=== PATIENT | male | born 1940 | race Caucasian/White ===

== ENCOUNTER 2022-07-14 05:40 | Day surgery (SDC) | payer OTHER ==
[2022-07-12 13:14] LABS: BASOPHILS % (AUTO) 0.3 % (0.0-5.0); EOSINOPHILS % (AUTO) 1.3 % (0.0-8.0); HEMATOCRIT 41.1 % (42-54); LYMPHOCYTES % (AUTO) 17.6 % (21.0-51.0); MEAN CORPUSCULAR HGB CONC 33.1 g/dL (32.0-36.0); MEAN CORPUSCULAR VOLUME 90.7 fL (79-99); MONOCYTES % (AUTO) 7.4 % (3.0-13.0); NEUTROPHILS % (AUTO) 73.1 % (40.0-77.0); PLATELET COUNT (AUTO) 148 K/uL (130-400); RED BLOOD CELL COUNT(AUTO) 4.53 MIL/uL (4.50-6.20); RED CELL DISTRIBUTION WIDTH 13.5 % (11.0-15.5); WHITE BLOOD COUNT (AUTO) 6.8 K/uL (4.8-10.8)
[2022-07-12 13:19] LABS: CREATININE 1.2 mg/dL (0.5-1.5); POTASSIUM 4.1 mmol/L (3.5-5.1)
[2022-07-12 13:28] LABS: INR 1.06 (0.85-1.15); PROTHROMBIN TIME 11.5 SEC (9.6-11.6)
[2022-07-12 13:30] LABS: PARTIAL THROMBOPLASTIN TIME 27.9 SEC (26.3-35.5)
[2022-07-12 13:52] LABS: B-TYPE NATRIURETIC PEPTIDE 140 pg/mL (0-100)
[2022-07-13 10:47] VITALS: BP 165/78
[2022-07-14] VITALS (9 sets, daily range): BP systolic 131–155; BP diastolic 67–81
[~2022-07-14] VITALS: Ht 177.8 cm; Wt 85.3 kg
[~2022-07-14 05:40] MED LIST: AEC81 PO; AMLO-257 PO; CARV25TA PO; CLOP75TA32 PO; EMPA25TA PO; FINA5TAB41 PO; INSU100V12 SQ; METF-446 PO; OXYB5TAB15 PO; PANT40TA54 PO; PRAM1TAB7 PO; SACU1TAB4 PO; SEMA2PEN SQ; SPIR25TA6 PO
[2022-07-14] MEDS ORDERED: HEPARIN 10,000 UNIT/10ML (1,000 UNIT/ML) VIAL ONE (08:41)
[2022-07-14] MEDS ORDERED: FENTANYL CITRATE PF 50 MCG/1 ML 2ML VIAL ONE ×2 (08:41→10:26)
[2022-07-14] MEDS ORDERED: NITROGLYCERIN 50MG VIAL ONE (08:41)
[2022-07-14] MEDS ORDERED: IODIXANOL 320 MG/ML 100 ML VIAL ONE (08:41)
[2022-07-14] MEDS ORDERED: MIDAZOLAM HCL 1 MG/ML 2ML VIAL ONE ×2 (08:41→10:26)
[2022-07-14] MEDS ORDERED: LIDOCAINE HCL 400MG/20ML VIAL ONE (08:41)
[2022-07-14] MEDS ORDERED: NICARDIPINE 25MG INJ IV ONE (09:31)
[2022-07-14] MEDS ORDERED: CLOPIDOGREL 300MG TAB ONE (09:36)
[2022-07-14] MEDS ORDERED: LABETALOL 20MG SYG IV ONE (10:27)
[2022-07-14] MEDS ORDERED: 0.9%NACL 1000ML 1,000 ML IV SCH (11:00)
[2022-07-14] MEDS ORDERED: DEXTROSE 50%-WATER 50 ML DISP.SYRIN IV PRN (11:00)
[2022-07-14] MEDS ORDERED: GLUCAGON 1MG KIT 1 MG ML IM PRN (11:00)
== END 2022-07-14 14:45 | disposition home or self-care (01) ==
LOC: DAH 05:40
PROVIDERS: ATTEND Internal Medicine Cardiovascular Disease
DX: I70.248 Atherosclerosis of native arteries of left leg with ulceration of other part of lower leg (principal); L97.828 Non-pressure chronic ulcer of other part of left lower leg with other specified severity; E11.51 Type 2 diabetes mellitus with diabetic peripheral angiopathy without gangrene; I70.92 Chronic total occlusion of artery of the extremities; I11.0 Hypertensive heart disease with heart failure; I50.22 Chronic systolic (congestive) heart failure; I48.0 Paroxysmal atrial fibrillation; E78.5 Hyperlipidemia, unspecified; K21.9 Gastro-esophageal reflux disease without esophagitis; Z79.82 Long term (current) use of aspirin; Z79.01 Long term (current) use of anticoagulants; Z79.899 Other long term (current) drug therapy; Z98.890 Other specified postprocedural states; Z72.89 Other problems related to lifestyle; Z82.49 Family history of ischemic heart disease and other diseases of the circulatory system; Z90.89 Acquired absence of other organs; Z79.84 Long term (current) use of oral hypoglycemic drugs
CPT/HCPCS: 80048; 83880; 85025; 85610; 85730; 36415 ×2; 71045; 93005; 75716; 85347; 82948 ×2; C9766; C1725; C1894 ×2; C1893; C1769 ×2; C1724; C1760; C2623 ×2; C1887; J3010 ×2; J3490 ×3; J1644 ×2; J2250 ×2; Q9967; A4215; A4222; A4221; A4663; A4216; A4606; A4223 ×3; 96360; 96361; 99156; 99157

== ENCOUNTER 2022-07-29 06:43 | Day surgery (SDC) | payer OTHER ==
[2022-07-27 10:33] VITALS: BP 162/70
[2022-07-27 10:33] LABS: BASOPHILS % (AUTO) 0.2 % (0.0-5.0); EOSINOPHILS % (AUTO) 2.1 % (0.0-8.0); HEMATOCRIT 37.4 % (42-54); LYMPHOCYTES % (AUTO) 19.4 % (21.0-51.0); MEAN CORPUSCULAR HEMOGLOBIN 29.8 pg (27.0-33.0); MEAN CORPUSCULAR HGB CONC 32.6 g/dL (32.0-36.0); MEAN CORPUSCULAR VOLUME 91.4 fL (79-99); MONOCYTES % (AUTO) 10.5 % (3.0-13.0); NEUTROPHILS % (AUTO) 67.6 % (40.0-77.0); PLATELET COUNT (AUTO) 134 K/uL (130-400); RED BLOOD CELL COUNT(AUTO) 4.09 MIL/uL (4.50-6.20); RED CELL DISTRIBUTION WIDTH 14.1 % (11.0-15.5); WHITE BLOOD COUNT (AUTO) 4.3 K/uL (4.8-10.8)
[2022-07-27 10:43] LABS: CREATININE 1.2 mg/dL (0.5-1.5); POTASSIUM 4.3 mmol/L (3.5-5.1)
[2022-07-27 10:57] LABS: INR 1.08 (0.85-1.15); PROTHROMBIN TIME 11.7 SEC (9.6-11.6)
[2022-07-27 10:59] LABS: PARTIAL THROMBOPLASTIN TIME 27.9 SEC (26.3-35.5)
[2022-07-27 11:11] LABS: B-TYPE NATRIURETIC PEPTIDE 225 pg/mL (0-100)
[~2022-07-29] VITALS: Ht 179.1 cm; Wt 87.5 kg
[2022-07-29] VITALS (10 sets, daily range): BP systolic 132–174; BP diastolic 55–77
[2022-07-29] MEDS ORDERED: 0.9%NACL 1000ML 1,000 ML IV ONE (07:12)
[2022-07-29] MEDS ORDERED: HEPARIN 10,000 UNIT/10ML (1,000 UNIT/ML) VIAL ONE ×2 (09:05→10:54)
[2022-07-29] MEDS ORDERED: NITROGLYCERIN 50MG VIAL ONE (09:05)
[2022-07-29] MEDS ORDERED: IODIXANOL 320 MG/ML 100 ML VIAL ONE (09:05)
[2022-07-29] MEDS ORDERED: NICARDIPINE 25MG INJ IV ONE (09:05)
[2022-07-29] MEDS ORDERED: MIDAZOLAM HCL 1 MG/ML 2ML VIAL ONE ×2 (09:06→10:40)
[2022-07-29] MEDS ORDERED: LIDOCAINE HCL 400MG/20ML VIAL ONE (09:07)
[2022-07-29] MEDS ORDERED: FENTANYL CITRATE PF 50 MCG/1 ML 2ML VIAL ONE ×2 (09:07→10:40)
[2022-07-29] MEDS ORDERED: CLOPIDOGREL 300MG TAB ONE (09:52)
[2022-07-29] MEDS ORDERED: 0.9%NACL 1000ML 1,000 ML IV SCH (12:00)
[2022-07-29] MEDS ORDERED: DEXTROSE 50%-WATER 50 ML DISP.SYRIN IV PRN (12:00)
[2022-07-29] MEDS ORDERED: GLUCAGON 1MG KIT 1 MG ML IM PRN (12:00)
== END 2022-07-29 17:33 | disposition home or self-care (01) ==
LOC: DAH 06:43
PROVIDERS: ATTEND Internal Medicine Cardiovascular Disease
DX: I70.248 Atherosclerosis of native arteries of left leg with ulceration of other part of lower leg (principal); L97.828 Non-pressure chronic ulcer of other part of left lower leg with other specified severity; I70.92 Chronic total occlusion of artery of the extremities; E11.51 Type 2 diabetes mellitus with diabetic peripheral angiopathy without gangrene; I11.0 Hypertensive heart disease with heart failure; I50.22 Chronic systolic (congestive) heart failure; I48.0 Paroxysmal atrial fibrillation; K21.9 Gastro-esophageal reflux disease without esophagitis; E78.5 Hyperlipidemia, unspecified; Z79.01 Long term (current) use of anticoagulants; Z79.899 Other long term (current) drug therapy; Z79.82 Long term (current) use of aspirin; Z98.890 Other specified postprocedural states; Z90.89 Acquired absence of other organs; Z82.49 Family history of ischemic heart disease and other diseases of the circulatory system; Z72.89 Other problems related to lifestyle; Z79.84 Long term (current) use of oral hypoglycemic drugs; Z88.8 Allergy status to other drugs, medicaments and biological substances
CPT/HCPCS: 80048; 83880; 85025; 85610; 85730; 36415; 93005; 37229; 82948 ×2; C1894 ×2; C1769 ×6; C1893; C1724; C1760; C2623; C1725; C1887; J3010 ×2; J3490 ×3; J7030; J1644 ×3; J2250 ×2; Q9967; A4215; A4222; A4221; A4663; A4216; A4606; A4223 ×3; 37228; 75710; 75774; 96360; 96361; 99156; 99157

== ENCOUNTER 2022-08-18 05:59 | Day surgery (SDC) | payer OTHER ==
[2022-08-12 10:17] LABS: BASOPHILS % (AUTO) 0.5 % (0.0-5.0); EOSINOPHILS % (AUTO) 1.6 % (0.0-8.0); HEMATOCRIT 38.5 % (42-54); LYMPHOCYTES % (AUTO) 12.2 % (21.0-51.0); MEAN CORPUSCULAR HGB CONC 32.5 g/dL (32.0-36.0); MEAN CORPUSCULAR VOLUME 92.3 fL (79-99); MONOCYTES % (AUTO) 9.4 % (3.0-13.0); PLATELET COUNT (AUTO) 151 K/uL (130-400); RED BLOOD CELL COUNT(AUTO) 4.17 MIL/uL (4.50-6.20); RED CELL DISTRIBUTION WIDTH 13.3 % (11.0-15.5); WHITE BLOOD COUNT (AUTO) 6.3 K/uL (4.8-10.8)
[2022-08-12 10:24] VITALS: BP 166/78
[2022-08-12 10:28] LABS: INR 1.02 (0.85-1.15); PROTHROMBIN TIME 11.1 SEC (9.6-11.6)
[2022-08-12 10:29] LABS: CREATININE 1.4 mg/dL (0.5-1.5); POTASSIUM 4.7 mmol/L (3.5-5.1)
[2022-08-12 10:30] LABS: PARTIAL THROMBOPLASTIN TIME 28.8 SEC (26.3-35.5)
[2022-08-12 10:46] LABS: B-TYPE NATRIURETIC PEPTIDE 143 pg/mL (0-100)
[~2022-08-18] VITALS: Ht 180.3 cm; Wt 85.5 kg
[2022-08-18] VITALS (9 sets, daily range): BP systolic 126–155; BP diastolic 63–78
[~2022-08-18 05:59] MED LIST changes: +0.9% NACL 500ML IV.SOLN 500 ML IV SCH; +HYDROCODONE PO
[2022-08-18] MEDS ORDERED: 0.9%NACL 1000ML 1,000 ML IV ONE (06:22)
[2022-08-18] MEDS ORDERED: NICARDIPINE 25MG INJ IV ONE (07:09)
[2022-08-18] MEDS ORDERED: IODIXANOL 320 MG/ML 100 ML VIAL ONE (07:09)
[2022-08-18] MEDS ORDERED: HEPARIN 10,000 UNIT/10ML (1,000 UNIT/ML) VIAL ONE (07:09)
[2022-08-18] MEDS ORDERED: NITROGLYCERIN 50MG VIAL ONE (07:09)
[2022-08-18] MEDS ORDERED: LIDOCAINE HCL 400MG/20ML VIAL ONE (07:10)
[2022-08-18] MEDS ORDERED: MIDAZOLAM HCL 1 MG/ML 2ML VIAL ONE ×2 (07:10→08:34)
[2022-08-18] MEDS ORDERED: FENTANYL CITRATE PF 50 MCG/1 ML 2ML VIAL ONE ×2 (07:10→08:34)
[2022-08-18] MEDS ORDERED: CLOPIDOGREL 300MG TAB ONE (08:32)
[2022-08-18] MEDS ORDERED: GLUCAGON 1MG KIT 1 MG ML IM PRN (10:00)
[2022-08-18] MEDS ORDERED: 0.9%NACL 1000ML 1,000 ML IV SCH (10:00)
[2022-08-18] MEDS ORDERED: DEXTROSE 50%-WATER 50 ML DISP.SYRIN IV PRN (10:00)
== END 2022-08-18 14:05 ==
LOC: DAH 05:59
PROVIDERS: ATTEND Internal Medicine Cardiovascular Disease
DX: I70.211 Atherosclerosis of native arteries of extremities with intermittent claudication, right leg (principal); I11.0 Hypertensive heart disease with heart failure; I50.22 Chronic systolic (congestive) heart failure; E11.9 Type 2 diabetes mellitus without complications; E78.5 Hyperlipidemia, unspecified; I48.0 Paroxysmal atrial fibrillation; Z79.4 Long term (current) use of insulin; Z79.82 Long term (current) use of aspirin; Z79.899 Other long term (current) drug therapy; Z87.891 Personal history of nicotine dependence; Z72.89 Other problems related to lifestyle; Z91.048 Other nonmedicinal substance allergy status; Z88.8 Allergy status to other drugs, medicaments and biological substances; Z95.0 Presence of cardiac pacemaker; Z98.890 Other specified postprocedural states; Z96.653 Presence of artificial knee joint, bilateral
CPT/HCPCS: 80048; 83880; 85025; 85610; 85730; 36415; 75716; 37225; 37229; 96360; 96361; 82948 ×2; A4223 ×3; C1887; C1894 ×2; C1760; C1893; C1769 ×4; C1724; C2623 ×2; C1725; J3010 ×2; J3490 ×3; J7030; J1644 ×3; J2250 ×2; Q9967; A4215; A4222; A4221; A4663; A4216; A4606; 37228; 99156; 99157

== ENCOUNTER 2022-08-27 05:55 | Day surgery (SDC) | payer OTHER ==
[2022-08-25 10:16] LABS: BASOPHILS % (AUTO) 0.8 % (0.0-5.0); EOSINOPHILS % (AUTO) 2.3 % (0.0-8.0); HEMATOCRIT 36.8 % (42-54); LYMPHOCYTES % (AUTO) 19.1 % (21.0-51.0); MEAN CORPUSCULAR HEMOGLOBIN 29.8 pg (27.0-33.0); MEAN CORPUSCULAR HGB CONC 32.3 g/dL (32.0-36.0); MONOCYTES % (AUTO) 9.1 % (3.0-13.0); NEUTROPHILS % (AUTO) 68.1 % (40.0-77.0); PLATELET COUNT (AUTO) 159 K/uL (130-400); RED CELL DISTRIBUTION WIDTH 12.9 % (11.0-15.5); WHITE BLOOD COUNT (AUTO) 5.2 K/uL (4.8-10.8)
[2022-08-25 10:25] LABS: CREATININE 1.3 mg/dL (0.5-1.5); POTASSIUM 4.5 mmol/L (3.5-5.1)
[2022-08-25 10:26] LABS: INR 1.05 (0.85-1.15); PROTHROMBIN TIME 11.4 SEC (9.6-11.6)
[2022-08-25 10:27] LABS: PARTIAL THROMBOPLASTIN TIME 27.8 SEC (26.3-35.5)
[2022-08-25 10:57] LABS: B-TYPE NATRIURETIC PEPTIDE 201 pg/mL (0-100)
[2022-08-25 10:58] VITALS: BP 174/72
[~2022-08-27] VITALS: Ht 177.8 cm; Wt 85.2 kg
[2022-08-27] VITALS (10 sets, daily range): BP systolic 105–141; BP diastolic 47–66
[~2022-08-27 05:55] MED LIST changes: -HYDROCODONE PO
[2022-08-27] MEDS ORDERED: LIDOCAINE HCL 400MG/20ML VIAL ONE (07:08)
[2022-08-27] MEDS ORDERED: MIDAZOLAM HCL 1 MG/ML 2ML VIAL ONE ×3 (07:09→09:38)
[2022-08-27] MEDS ORDERED: IODIXANOL 320 MG/ML 100 ML VIAL ONE ×2 (07:10→10:32)
[2022-08-27] MEDS ORDERED: FENTANYL CITRATE PF 50 MCG/1 ML 2ML VIAL ONE ×2 (07:10→08:56)
[2022-08-27] MEDS ORDERED: NICARDIPINE 25MG INJ IV ONE (07:11)
[2022-08-27] MEDS ORDERED: HEPARIN 10,000 UNIT/10ML (1,000 UNIT/ML) VIAL ONE ×2 (07:11→10:41)
[2022-08-27] MEDS ORDERED: NITROGLYCERIN 50MG VIAL ONE (07:11)
[2022-08-27] MEDS ORDERED: HYDRALAZINE 20MG/ML VIAL ONE (10:17)
[2022-08-27] MEDS ORDERED: CLOPIDOGREL 300MG TAB ONE (11:07)
[2022-08-27] MEDS ORDERED: DEXTROSE 50%-WATER 50 ML DISP.SYRIN IV PRN (11:30)
[2022-08-27] MEDS ORDERED: GLUCAGON 1MG KIT 1 MG ML IM PRN (11:30)
[2022-08-27] MEDS ORDERED: 0.9%NACL 1000ML 1,000 ML IV SCH (11:30)
== END 2022-08-27 15:25 | disposition home or self-care (01) ==
LOC: DAH 05:55
PROVIDERS: ATTEND Internal Medicine Cardiovascular Disease
DX: I70.248 Atherosclerosis of native arteries of left leg with ulceration of other part of lower leg (principal); L97.828 Non-pressure chronic ulcer of other part of left lower leg with other specified severity; E11.51 Type 2 diabetes mellitus with diabetic peripheral angiopathy without gangrene; I11.0 Hypertensive heart disease with heart failure; I50.22 Chronic systolic (congestive) heart failure; K21.9 Gastro-esophageal reflux disease without esophagitis; I48.0 Paroxysmal atrial fibrillation; E78.5 Hyperlipidemia, unspecified; Z79.899 Other long term (current) drug therapy; Z79.01 Long term (current) use of anticoagulants; Z79.82 Long term (current) use of aspirin; Z79.84 Long term (current) use of oral hypoglycemic drugs; Z98.890 Other specified postprocedural states; Z90.89 Acquired absence of other organs; Z82.49 Family history of ischemic heart disease and other diseases of the circulatory system; Z72.89 Other problems related to lifestyle
CPT/HCPCS: 80048; 83880; 85025; 85610; 85730; 36415 ×2; 85347; 82948; 37228; C9772; C1887 ×3; C1894 ×3; C1769 ×6; C1760; C1893; C1725 ×2; C1727; J3010 ×2; J3490 ×3; J0360; J1644 ×2; J2250 ×3; Q9967 ×2; A4215; A4222; A4221; A4663; A4216; A4606; A4223 ×3; 99156; 99157

== ENCOUNTER 2023-12-20 06:52 | Day surgery (SDC) | payer OTHER ==
[2023-12-16 11:16] LABS: BASOPHILS # (AUTO) 0.02 K/uL (0.00-0.20); BASOPHILS % (AUTO) 0.4 % (0.0-5.0); EOSINOPHILS # (AUTO) 0.08 K/uL (0.00-0.70); EOSINOPHILS % (AUTO) 1.5 % (0.0-8.0); HEMATOCRIT 35.8 % (42-54); IMMATURE GRANULOCYTE ABSOLUTE 0.03 K/uL (0-1); LYMPHOCYTES # (AUTO) 0.7 K/uL (1.0-4.8); LYMPHOCYTES % (AUTO) 13.3 % (21.0-51.0); MEAN CORPUSCULAR HEMOGLOBIN 29.6 pg (27.0-33.0); MEAN CORPUSCULAR HGB CONC 32.7 g/dL (32.0-36.0); MEAN CORPUSCULAR VOLUME 90.6 fL (79-99); MONOCYTES # (AUTO) 0.3 K/uL (0.1-1.0); MONOCYTES % (AUTO) 6.4 % (3.0-13.0); NEUTROPHILS # (AUTO) 4.1 K/uL (1.8-7.7); NEUTROPHILS % (AUTO) 77.8 % (40.0-77.0); PLATELET COUNT (AUTO) 182 K/uL (130-400); RED BLOOD CELL COUNT(AUTO) 3.95 MIL/uL (4.50-6.20); RED CELL DISTRIBUTION WIDTH 12.2 % (11.0-15.5); WHITE BLOOD COUNT (AUTO) 5.3 K/uL (4.8-10.8)
[2023-12-16 11:21] LABS: CREATININE 1.4 mg/dL (0.5-1.3); POTASSIUM 4.7 mmol/L (3.5-5.1)
[2023-12-16 11:24] LABS: INR 1.11 (0.85-1.15); PROTHROMBIN TIME 11.9 SEC (9.6-11.6)
[2023-12-16 11:25] LABS: PARTIAL THROMBOPLASTIN TIME 27.2 SEC (26.3-35.5)
[2023-12-16 11:34] LABS: B-TYPE NATRIURETIC PEPTIDE 127 pg/mL (0-100)
[2023-12-16 11:52] VITALS: BP 129/65; PULSE 84; RESP 18
[~2023-12-20] VITALS: Ht 172.7 cm; Wt 88.1 kg
[2023-12-20] VITALS (8 sets, daily range): BP systolic 121–157; BP diastolic 59–85; PULSE 84–89; RESP 14–17
[~2023-12-20 06:52] MED LIST changes: -0.9% NACL 500ML IV.SOLN 500 ML IV SCH; -AEC81 PO; +AMOX500C2 PO; -FINA5TAB41 PO; -INSU100V12 SQ; +METF-444 PO; -METF-446 PO; -OXYB5TAB15 PO; +OXYB5TAB20 PO; -SPIR25TA6 PO; +TAMS-1 PO; +VERI2.5T PO
[2023-12-20] MEDS ORDERED: IOHEXOL 350 MG/ML 100ML INFUS..BTL IV ONE (07:12)
[2023-12-20] MEDS ORDERED: LIDOCAINE HCL 400MG/20ML VIAL ONE ×2 (07:12→09:40)
[2023-12-20] MEDS ORDERED: NITROGLYCERIN 50MG VIAL ONE ×2 (07:13→09:40)
[2023-12-20] MEDS ORDERED: IODIXANOL 320 MG/ML 100 ML VIAL ONE ×2 (09:40→11:00)
[2023-12-20] MEDS ORDERED: HEPARIN 10,000 UNIT/10ML (1,000 UNIT/ML) VIAL ONE (09:41)
[2023-12-20] MEDS ORDERED: MIDAZOLAM HCL 1 MG/ML 2ML VIAL ONE ×2 (10:04→11:29)
[2023-12-20] MEDS ORDERED: FENTANYL CITRATE PF 50 MCG/1 ML 2ML VIAL ONE (10:04)
[2023-12-20] MEDS ORDERED: CLOPIDOGREL 300MG TAB ONE (11:11)
[2023-12-20] MEDS ORDERED: ASPIRIN 325MG EC TAB PO ONE (11:11)
[2023-12-20] MEDS ORDERED: GLUCAGON 1MG KIT 1 MG ML IM PRN (12:00)
[2023-12-20] MEDS ORDERED: DEXTROSE 50%-WATER 50 ML DISP.SYRIN IV PRN (12:00)
[2023-12-20] MEDS ORDERED: 0.9%NACL 1000ML 1,000 ML IV SCH (12:00)
== END 2023-12-20 15:45 | disposition home or self-care (01) ==
LOC: DAH 06:52
PROVIDERS: ATTEND Internal Medicine Cardiovascular Disease
DX: E11.51 Type 2 diabetes mellitus with diabetic peripheral angiopathy without gangrene (principal); I70.202 Unspecified atherosclerosis of native arteries of extremities, left leg; R94.31 Abnormal electrocardiogram [ECG] [EKG]; I44.4 Left anterior fascicular block; E78.5 Hyperlipidemia, unspecified; I11.0 Hypertensive heart disease with heart failure; I50.22 Chronic systolic (congestive) heart failure; L97.929 Non-pressure chronic ulcer of unspecified part of left lower leg with unspecified severity; M79.2 Neuralgia and neuritis, unspecified; I48.0 Paroxysmal atrial fibrillation; Z79.899 Other long term (current) drug therapy; Z98.890 Other specified postprocedural states; Z82.49 Family history of ischemic heart disease and other diseases of the circulatory system; Z88.8 Allergy status to other drugs, medicaments and biological substances; Z91.048 Other nonmedicinal substance allergy status
CPT/HCPCS: 80048; 83880; 85025; 85610; 85730; 36415 ×2; 71045; 93005; 75625; 75716; 85347; 82948; C9764; C1887; C1725 ×2; C1894 ×2; C1769 ×2; C1760; C1893; C2623; J3010; J3490 ×2; J1644 ×3; J2250 ×2; Q9967; A4215; A4222; A4221; A4663; A4216; A4606; A4223 ×3; 96360; 96361; 99156; 99157

== ENCOUNTER 2024-01-30 05:51 | Day surgery (SDC) | payer OTHER ==
[2024-01-26 10:27] VITALS: BP 101/55; PULSE 79; RESP 18; TEMP 98
[2024-01-26 10:32] LABS: BASOPHILS # (AUTO) 0.03 K/uL (0.00-0.20); BASOPHILS % (AUTO) 0.8 % (0.0-5.0); EOSINOPHILS # (AUTO) 0.07 K/uL (0.00-0.70); EOSINOPHILS % (AUTO) 1.8 % (0.0-8.0); HEMATOCRIT 38.9 % (42-54); IMMATURE GRANULOCYTE ABSOLUTE 0.02 K/uL (0-1); LYMPHOCYTES % (AUTO) 24.9 % (21.0-51.0); MEAN CORPUSCULAR HEMOGLOBIN 28.8 pg (27.0-33.0); MEAN CORPUSCULAR HGB CONC 32.4 g/dL (32.0-36.0); MEAN CORPUSCULAR VOLUME 88.8 fL (79-99); MONOCYTES # (AUTO) 0.4 K/uL (0.1-1.0); MONOCYTES % (AUTO) 9.5 % (3.0-13.0); NEUTROPHILS # (AUTO) 2.5 K/uL (1.8-7.7); NEUTROPHILS % (AUTO) 62.5 % (40.0-77.0); PLATELET COUNT (AUTO) 147 K/uL (130-400); RED BLOOD CELL COUNT(AUTO) 4.38 MIL/uL (4.50-6.20); RED CELL DISTRIBUTION WIDTH 13.1 % (11.0-15.5)
[2024-01-26 10:39] LABS: CREATININE 1.7 mg/dL (0.5-1.3); POTASSIUM 4.3 mmol/L (3.5-5.1)
[2024-01-26 10:47] LABS: INR 1.12 (0.85-1.15)
[2024-01-26 10:49] LABS: PARTIAL THROMBOPLASTIN TIME 29.4 SEC (26.3-35.5)
[~2024-01-30] VITALS: Ht 175.3 cm; Wt 84.7 kg
[2024-01-30] VITALS (10 sets, daily range): BP systolic 123–180; BP diastolic 61–84; PULSE 69–91; RESP 17–18; TEMP 96.9–97.7
[~2024-01-30 05:51] MED LIST changes: +AREDS PO; +ASPI-1443 PO; -CLOP75TA32 PO; -PANT40TA54 PO; +PRAS10TA9 PO; +SEMA1PEN3 SQ; -SEMA2PEN SQ; -TAMS-1 PO
[2024-01-30] MEDS ORDERED: LIDOCAINE HCL 400MG/20ML VIAL ONE (07:11)
[2024-01-30] MEDS ORDERED: HEParin 10,000 UNIT/10ML (1,000 UNIT/ML) VIAL ONE (07:11)
[2024-01-30] MEDS: 0.9%NACL 1000ML 1,000 ML IV SCH (07:11)
[2024-01-30] MEDS ORDERED: NITROGLYCERIN 50MG VIAL ONE (07:12)
[2024-01-30] MEDS ORDERED: HEParin-NS 1,000 UNIT/500 ML 1,000 ML IV ONE (07:12)
[2024-01-30] MEDS ORDERED: IODIXANOL 320 MG/ML 100 ML VIAL ONE (07:28)
[2024-01-30] MEDS ORDERED: FENTanyl CITRate PF 50 MCG/1 ML 2ML VIAL ONE (07:37)
[2024-01-30] MEDS ORDERED: MIDAZOLAM HCL 1 MG/ML 2ML VIAL ONE (07:38)
[2024-01-30] MEDS ORDERED: 0.9%NACL 1000ML 1,000 ML IV SCH ×2 (08:30→10:00)
[2024-01-30] MEDS ORDERED: CLOPIDOGREL 300MG TAB ONE (08:46)
[2024-01-30] MEDS ORDERED: PRASUGREL HCL 10 MG TABLET ONE (08:48)
[2024-01-30] MEDS ORDERED: HEParin-NS 1,000 UNIT/500 ML 500 ML IV ONE (09:00)
[2024-01-30] MEDS ORDERED: GLUCAGON 1MG KIT 1 MG ML IM PRN (10:00)
[2024-01-30] MEDS ORDERED: DEXTROSE 50%-WATER 50 ML DISP.SYRIN IV PRN (10:00)
== END 2024-01-30 13:09 | disposition home or self-care (01) ==
LOC: DAH 05:51
PROVIDERS: ATTEND Internal Medicine Cardiovascular Disease
DX: E11.51 Type 2 diabetes mellitus with diabetic peripheral angiopathy without gangrene (principal); I70.203 Unspecified atherosclerosis of native arteries of extremities, bilateral legs; I70.92 Chronic total occlusion of artery of the extremities; L97.929 Non-pressure chronic ulcer of unspecified part of left lower leg with unspecified severity; M79.2 Neuralgia and neuritis, unspecified; E78.5 Hyperlipidemia, unspecified; I11.0 Hypertensive heart disease with heart failure; I50.22 Chronic systolic (congestive) heart failure; I25.10 Atherosclerotic heart disease of native coronary artery without angina pectoris; I48.0 Paroxysmal atrial fibrillation; K21.9 Gastro-esophageal reflux disease without esophagitis; Z96.653 Presence of artificial knee joint, bilateral; Z95.0 Presence of cardiac pacemaker; Z88.1 Allergy status to other antibiotic agents; Z91.048 Other nonmedicinal substance allergy status; Z88.8 Allergy status to other drugs, medicaments and biological substances; Z79.01 Long term (current) use of anticoagulants; Z79.899 Other long term (current) drug therapy
CPT/HCPCS: 80048; 85025; 85610; 85730; 36415; 71045; 93005; 75630; 82948 ×2; C9764; C1887; C1725; C1894 ×2; C1769 ×2; C1760; C1893; C2623 ×2; J3010; J3490 ×2; J7030; J1644 ×3; J2250; Q9967; A4215; A4222; A4221; A4663; A4216; A4606; A4223 ×3; 75716; 99156; 99157